=== PATIENT | female | born 1995 | race Caucasian/White ===

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

== ENCOUNTER 2017-02-18 20:02 | Emergency (ER) | payer OTHER ==
[~2017-02-18] VITALS: Ht 165.1 cm; Wt 54.4 kg
[2017-02-18 22:28] VITALS: BP 94/58; Ht 165.1 cm; Wt 54.4 kg
== END 2017-02-19 03:46 | disposition left against medical advice (07) ==
LOC: ED 20:02
DX: Z53.21 Procedure and treatment not carried out due to patient leaving prior to being seen by health care provider (principal)